=== PATIENT | female | born 2000 | race Caucasian/White ===

== ENCOUNTER 2024-08-27 10:16 | Emergency (ER) | payer OTHER ==
[2024-08-27 10:25] VITALS: TEMP 97.9; BMI 23.3
[2024-08-27] MEDS ORDERED: ONDANSETRON 4 MG/2 ML VIAL ONE (12:08)
[2024-08-27] MEDS: ONDANSETRON 4 MG/2 ML VIAL IVPUSH ONE (12:22)
[2024-08-27 12:41] LABS: BASO % 0.4 % (0-2.0); EOS % 0.3 % (0-4.5); HEMATOCRIT 38.1 % (32.4-45.2); HEMOGLOBIN 13.3 GM/dL (10.7-15.3); LYMPH % 15.1 % (8-40); MCH 31.7 pg (25.7-33.7); MEAN CELL VOLUME 90.7 fl (80-96); MEAN PLT VOLUME 8.9 fl (7.5-11.1); MONO % 5.4 % (3.8-10.2); NEUT % 78.8 % (42.8-82.8); PLATELET COUNT 197 10^3/uL (134-434); RDW 14.3 % (11.6-15.6); WHITE BLOOD COUNT 9.9 K/mm3 (4.0-10.0)
[2024-08-27 13:04] LABS: POTASSIUM 3.5 mmol/L (3.5-5.1)
[2024-08-27 13:07] LABS: ALBUMIN 3.8 g/dl (3.4-5.0); BLOOD UREA NITROGEN 6.9 mg/dL (7-18); CALCIUM 9.2 mg/dL (8.5-10.1)
[2024-08-27 13:09] LABS: CREATININE 0.5 mg/dL (0.55-1.3)
[2024-08-27 13:12] LABS: BILIRUBIN,TOTAL 0.5 mg/dL (0.2-1); TOT PROT 7.1 g/dl (6.4-8.2)
[2024-08-27 16:36] VITALS: BP 132/70; PULSE 92; RESP 17
== END 2024-08-27 16:37 | disposition home or self-care (01) ==
LOC: JER 10:16
PROC: 3E033GC Introduction of Other Therapeutic Substance into Peripheral Vein, Percutaneous Approach (ICD-10-PCS; principal; 2024-08-27)
DX: S02.32XA Fracture of orbital floor, left side, initial encounter for closed fracture (principal); M79.602 Pain in left arm; R07.89 Other chest pain; Y04.8XXA Assault by other bodily force, initial encounter
CPT/HCPCS: 36415; 70450-TC; 70486-TC; 71250-TC; 72125-TC; 73060-TC-LT-FY; 73060-TC-RT-FY; 73090-TC-LT-FY; 73090-TC-RT-FY; 73110-TC-LT-FY; 73110-TC-RT-FY; 73130-TC-LT-FY; 73130-TC-RT-FY; 74177-TC; 80053; 84703; 85025; 86850; 86900; 86901; 99285-25; Q9967